=== PATIENT | female | born 1985 | race Two or more races ===

== ENCOUNTER 2018-08-06 16:25 | Emergency (ER) | payer SELFPAY ==
[~2018-08-06] VITALS: Ht 162.6 cm; Wt 90.1 kg
[2018-08-06 16:29] VITALS: BP 138/70
== END 2018-08-06 19:30 | disposition left against medical advice (07) ==
LOC: ER 16:25
DX: S61.511A Laceration without foreign body of right wrist, initial encounter (principal); W45.8XXA Other foreign body or object entering through skin, initial encounter; Y93.89 Activity, other specified; Y92.89 Other specified places as the place of occurrence of the external cause; Y99.8 Other external cause status